=== PATIENT | male | born 1945 | race Caucasian/White ===

== ENCOUNTER 2022-10-30 16:29 | Observation (INO) ==
--- NOTE | 2022-10-30 16:35 | ED.PDOC ---
General ED Provider: Dr. ROHAN CORTES MD Chief Complaint: Shortness of Air Stated Complaint: Patient presents with a 2-3 day history of dyspnea with exertion, weakness, fatigue and heart rate in the 40s. He did have influenza 2 weeks ago. Denies fever, chills, chest pain, cough, palpitations, syncope, orthopnea, or peripheral edema. Time Seen by Provider: 10/30/22 16:34 Primary Care Provider: ELVIS SULLIVAN MD Nursing and Triage Documentation Reviewed and Agree: Yes Does patient meet sepsis criteria?: No System Inflammatory Response Syndrome: Not Applicable Sepsis Protocol: For patient's 13 years and over: Temp is 96.8 and below OR 101 and greater Pulse >90 BPM Resp >20/minute Acutely Altered Mental Status Are patient's symptoms suggestive of a new infection, such as: -Pneumonia -Skin, Soft Tissue -Endocarditis -UTI -Bone, Joint Infection -Implantable Device -Acute Abdominal Infection -Wound Infection -Meningitis -Blood Stream Catheter Infection -Unknown Cardiovascular Complaint Exam Palpitations Complaint/Exam Onset/Duration: 2-3 days dyspnea, weakness, fatigue and bradycardia Symptoms Are: Still present Timing: Constant Initial Severity: Mild Current Severity: Moderate Character: Reports Slow Aggravating: Reports Exertion Alleviating: Reports Rest Associated Signs and Symptoms: Reports Lightheadedness and Shortness of breath Related History: Similar episode Related Surgical History: Reports None Cardiac Risk Factors: Reports Hypertension and Elevated lipids Pulmonary Embolism Risk Factors: Reports None Atrial Fibrillation Risk Factors: Reports Hypertension Thyroid Exam: Normal Review of Systems Review Of Systems Constitutional: Reports Weakness and Other (fatigue) Eyes: Reports No symptoms Ears, Nose, Mouth, Throat: Reports No symptoms Respiratory: Reports Short of air Cardiac: Reports Other (bradycardia) GI: Reports No symptoms : Reports No symptoms Musculoskeletal: Reports No symptoms Skin: Reports No symptoms Neurological: Reports No symptoms Endocrine: Reports No symptoms Hematologic/Lymphatic: Reports No symptoms All Other Systems: Reviewed and Negative Physical Exam Physical Exam Appearance: Reports Ill-appearing, No pain distress and Well-nourished Ill-appearing: Mild Pain Distress: None Eyes: Reports Not Examined ENT: Reports Nose normal and Oropharynx normal Neck: Supple (no carotid bruit or JVD) Respiratory: Reports Airway patent, Breath sounds clear and Breath sounds equal Cardiovascular: Reports No rub, No murmur and Bradycardia (heart rate in the 50s) GI/: Reports Soft, Nontender, No masses and Bowel sounds normal Musculoskeletal: Reports Normal strength, ROM intact and No edema Skin: Reports Warm, Dry and Normal color Neurological: Reports Sensation intact, Motor intact, Alert and Oriented Psychiatric: Reports Affect appropriate and Mood appropriate Interpretation Radiology Interpretation Radiology Interpretation By: Radiologist Exam Interpreted: Portable CXR (no acute cardiopulmonary findings) EKG Interpretation Time of EKG #1: 16:42 Rate: Normal (60bpm) Rhythm: Sinus Ectopy: None [place]: [place] ST Segment: Normal Interpretation: normal sinus rhythm, LBBB Physician Notification Case Discussed Physician Notified: Dr Sullivan Time of Notification: 17:33 Comments: Patient will be admitted for observation and placed on telemetry Critical Care Note Critical Care Note Total Critical Care Time (mins): 0 Course Course Hematology/Chemistry: 10/30/22 16:41 10/30/22 16:41 Orders, Labs, Meds: Lab Review 10/30/22 10/30/22 10/30/22 16:41 16:41 16:41 WBC 6.35 RBC 4.48 L Hgb 14.2 Hct 41.4 L MCV 92.4 MCH 31.7 H MCHC 34.3 RDW Coeff of [place] 13.2 Plt Count 204 Immature Gran % (Auto) 0.3 Neut % (Auto) 59.0 Lymph % (Auto) 27.9 [place] % (Auto) 8.8 Eos % (Auto) 3.5 Baso % (Auto) 0.5 Neut # (Auto) 3.8 Lymph # (Auto) 1.8 [place] # (Auto) 0.6 Eos # (Auto) 0.2 Baso # (Auto) 0.0 Immature Gran # (Auto) 0.0 Sodium 141.5 Potassium 3.56 Chloride 109.2 H Carbon Dioxide 27.7 Anion Gap 8.16 BUN 19.1 Creatinine 1.29 H Estimated GFR (MDRD) 54.00 BUN/Creatinine Ratio 14.80 Glucose 110.5 H Calcium 9.58 Magnesium 1.98 Total Bilirubin 0.93 AST 52.2 ALT 30.2 Alkaline Phosphatase 50.8 L Troponin I < 0.012 NT-Pro-B Natriuret Pep 167.000 Total Protein 7.44 Albumin 4.46 Globulin 2.98 Albumin/Globulin Ratio 1.49 Orders Category Date Time Status EKG-(ED ONLY) Stat CARDIO 10/30/22 16:35 Completed BNP [NT-PROBNP] Stat LAB 10/30/22 16:41 Completed CBC W/ AUTO DIFF Stat LAB 10/30/22 16:41 Completed CMP [COMPREHENSIVE METABOLIC PANEL] Stat LAB 10/30/22 16:41 Completed MAGNESIUM Stat LAB 10/30/22 16:41 Completed TROPONIN I Stat LAB 10/30/22 16:41 Completed CXR [CHEST, 1V AP ONLY] Stat RADS 10/30/22 16:41 Completed Vital Signs: Temp Pulse Resp BP Pulse Ox 10/30/22 16:30 98.0 F 58 L 16 179/83 H 98 WENDY Risk Score WENDY Risk Score: Risk Score Odds of by 30D 0 0.1 (0.1-0.2) 1 0.3 (0.2-0.3) 2 0.4 (0.3-0.5) 3 0.7 (0.6-0.9) 4 1.2 (1.0-1.5) 5 2.2 (1.9-2.6) 6 3.0 (2.5-3.6) 7 4.8 (3.8-6.1) Discharge Plan Discharge Patient Disposition: PLACED OBSERVATION Discharge Problem: Bradycardia, Generalized weakness, Exertional dyspnea Did you review [place] DELIVERY ARCHITECT?: Not Applicable ED Provider: ROHAN CORTES Condition: Stable Physician Progress Note: []
[2022-10-30 17:01] LABS: ALANINE AMINOTRANSFERASE 30.2 U/L (0-50); ALBUMIN 4.46 g/dL (3.5-5.0); ALKALINE PHOSPHATASE 50.8 U/L (56-119); ASPARTATE AMINO TRANSFERASE 52.2 U/L (17-59); BILIRUBIN,TOTAL 0.93 mg/dL (0.2-1.3); BLOOD UREA NITROGEN 19.1 mg/dL (9-20); CALCIUM 9.58 mg/dL (8.4-10.2); CARBON DIOXIDE 27.7 mmol/L (22-30.0); CHLORIDE 109.2 mmol/L (98-107); CREATININE 1.29 mg/dL (0.60-1.10); GLUCOSE 110.5 mg/dL (74-106); MAGNESIUM 1.98 mg/dL (1.6-2.3); POTASSIUM 3.56 mmol/L (3.5-5.1); SODIUM 141.5 mmol/L (134.5-145); TOTAL PROTEIN 7.44 g/dL (6.3-8.2)
--- NOTE | 2022-10-30 17:01 | DI ---
EXAM: CHEST RADIOGRAPH (1 VIEW) TECHNIQUE: Frontal Chest Radiograph. HISTORY: Dyspnea COMPARISON: 01/01/2021 FINDINGS: Lines, Tubes, Devices: None Lungs and Pleura: No focal consolidation. No pleural effusion. No pneumothorax. No pulmonary edema . Cardiomediastinum: Normal cardiomediastinal silhouette. Mild to moderate aortic calcifications. Bones/Soft Tissues: No acute osseous abnormality. No soft tissue abnormality. Upper Abdomen: Within normal limits. IMPRESSION: No acute radiographic abnormality.
[2022-10-30 17:19] LABS: BASOPHILS % (AUTO) 0.5 % (0.0-3.0); EOSINOPHILS # (AUTO) 0.2 K/ul (0.0-0.7); EOSINOPHILS % (AUTO) 3.5 % (0.0-7.0); HEMATOCRIT 41.4 % (42.0-52.0); HEMOGLOBIN 14.2 g/dl (14.0-18.0); IMMATURE GRANULOCYTE % (AUTO) 0.3 % (0.0-5.0); LYMPHOCYTES # (AUTO) 1.8 K/uL (0.60-3.4); LYMPHOCYTES % (AUTO) 27.9 (10.0-50.0); MEAN CORPUSCULAR HEMOGLOBIN 31.7 pg (27.0-31.0); MEAN CORPUSCULAR HGB CONC 34.3 (31.8-35.4); MEAN CORPUSCULAR VOLUME 92.4 fl (80.0-94.0); MONOCYTES # (AUTO) 0.6 K/uL (0.4-2.0); MONOCYTES % (AUTO) 8.8 (0-10); NEUTROPHILS # (AUTO) 3.8 K/ul (2.0-6.9); PLATELET COUNT 204 10^3/uL (140-440); RDW COEFFICIENT OF VARIATION 13.2 % (11.6-14.8); RED BLOOD COUNT 4.48 10^6/ul (4.70-6.10); TROPONIN I < 0.012 ng/ml (0.0000-0.120); WHITE BLOOD COUNT 6.35 K/ul (4.2-10.2)
--- NOTE | 2022-10-30 17:44 | PCM ---
Chief Complaint Chief Complaint: bradycardia, weakness, exertional dyspnea History of Present Illness History of Present Illness: Two day history of heart rate in the 40s, generalized weakness and exertional dyspnea. Review of Systems Constitutional: Reports Weakness and Fatigue Eyes: Reports No symptoms Ears: Reports No symptoms Nose: Reports No symptoms Throat: Reports No symptoms Mouth: Reports No symptoms Respiratory: Reports Shortness of air Cardiovascular: Reports Other (bradycardia) Gastrointestinal: Reports No symptoms Genitourinary: Reports No symptoms Neurological: Reports No symptoms Musculoskeletal: Reports No symptoms Skin: Reports No symptoms Immunology: Reports No symptoms Hematology: Reports No symptoms Endocrine: Reports No symptoms Psychiatric: Reports No symptoms Allergies Allergies Allergy/AdvReac Type Severity Reaction Status Date / Time Penicillins AdvReac Rash Verified 03/05/20 11:26 Body Composition Height: 5 ft 7 in Weight: 74.48 kg Body Mass Index (BMI): 25.7 Vital Signs Temperature: 98.0 F Pulse Rate: 58 Respiratory Rate: 16 Blood Pressure: 179/83 O2 Sat by Pulse Oximetry: 98 Physical Examination Appearance: Reports Well-appearing, No pain distress and Well-nourished Ill-appearing: Mild Pain Distress: None Eyes: Reports Not Examined ENT: Reports Nose normal and Oropharynx normal Neck: Supple (no JVD or carotid bruit) Respiratory: Reports Airway patent, Breath sounds clear and Breath sounds equal Cardiovascular: Reports No rub, No murmur and Bradycardia (heart rate in the 50s) GI/: Reports Soft, Nontender, No masses and Bowel sounds normal Musculoskeletal: Reports Normal strength, ROM intact and No edema Skin: Reports Warm, Dry and Normal color Neurological: Reports Sensation intact, Motor intact, Alert and Oriented Psychiatric: Reports Affect appropriate, Mood appropriate and Anxious Lab/Tests/Diagnostic Imaging Lab/Tests/Diagnostic Imaging: Lab Review 10/30/22 10/30/22 10/30/22 16:41 16:41 16:41 WBC 6.35 RBC 4.48 L Hgb 14.2 Hct 41.4 L MCV 92.4 MCH 31.7 H MCHC 34.3 RDW Coeff of [place] 13.2 Plt Count 204 Immature Gran % (Auto) 0.3 Neut % (Auto) 59.0 Lymph % (Auto) 27.9 [place] % (Auto) 8.8 Eos % (Auto) 3.5 Baso % (Auto) 0.5 Neut # (Auto) 3.8 Lymph # (Auto) 1.8 [place] # (Auto) 0.6 Eos # (Auto) 0.2 Baso # (Auto) 0.0 Immature Gran # (Auto) 0.0 Sodium 141.5 Potassium 3.56 Chloride 109.2 H Carbon Dioxide 27.7 Anion Gap 8.16 BUN 19.1 Creatinine 1.29 H Estimated GFR (MDRD) 54.00 BUN/Creatinine Ratio 14.80 Glucose 110.5 H Calcium 9.58 Magnesium 1.98 Total Bilirubin 0.93 AST 52.2 ALT 30.2 Alkaline Phosphatase 50.8 L Troponin I < 0.012 NT-Pro-B Natriuret Pep 167.000 Total Protein 7.44 Albumin 4.46 Globulin 2.98 Albumin/Globulin Ratio 1.49 Orders Category Date Time Status EKG-(ED ONLY) Stat CARDIO 10/30/22 16:35 Completed BNP [NT-PROBNP] Stat LAB 10/30/22 16:41 Completed CBC W/ AUTO DIFF Stat LAB 10/30/22 16:41 Completed CMP [COMPREHENSIVE METABOLIC PANEL] Stat LAB 10/30/22 16:41 Completed MAGNESIUM Stat LAB 10/30/22 16:41 Completed TROPONIN I Stat LAB 10/30/22 16:41 Completed CXR [CHEST, 1V AP ONLY] Stat RADS 10/30/22 16:41 Completed Assessment (1) Bradycardia: Status: Acute Code(s): R00.1 - Bradycardia, unspecified SNOMED Code(s): 28847993 (2) Generalized weakness: Status: Acute Code(s): R53.1 - Weakness SNOMED Code(s): 34046768 (3) Exertional dyspnea: Status: Acute Code(s): R06.09 - Other forms of dyspnea SNOMED Code(s): 02277475 Plan Plan: Patient to be admitted and placed on telemetry. Dr Aldana to see and assess further.
[2022-10-30 19:24] LABS: SARS COV-2 RNA RAPID NAAT NEGATIVE (NEGATIVE)
[2022-10-30] MEDS ORDERED: XANAX PO PRN (20:08)
[2022-10-30] MEDS ORDERED: PROTONIX PO SCH (21:00)
[2022-10-30 21:06] VITALS: BMI 25.6
[2022-10-30] MEDS: COZAAR PO SCH (22:59)
[2022-10-30] MEDS: NORVASC PO SCH (22:59)
[2022-10-31 05:16] LABS: BASOPHILS % (AUTO) 0.6 % (0.0-3.0); EOSINOPHILS # (AUTO) 0.3 K/ul (0.0-0.7); EOSINOPHILS % (AUTO) 4.6 % (0.0-7.0); HEMOGLOBIN 13.4 g/dl (14.0-18.0); IMMATURE GRANULOCYTE % (AUTO) 0.4 % (0.0-5.0); LYMPHOCYTES # (AUTO) 1.4 K/uL (0.60-3.4); MEAN CORPUSCULAR HEMOGLOBIN 31.8 pg (27.0-31.0); MEAN CORPUSCULAR HGB CONC 34.4 (31.8-35.4); MEAN CORPUSCULAR VOLUME 92.6 fl (80.0-94.0); MONOCYTES # (AUTO) 0.5 K/uL (0.4-2.0); MONOCYTES % (AUTO) 8.9 (0-10); NEUTROPHILS # (AUTO) 3.2 K/ul (2.0-6.9); NEUTROPHILS % (AUTO) 59.5 % (42.2-75.2); PLATELET COUNT 178 10^3/uL (140-440); RDW COEFFICIENT OF VARIATION 13.2 % (11.6-14.8); RED BLOOD COUNT 4.21 10^6/ul (4.70-6.10); WHITE BLOOD COUNT 5.39 K/ul (4.2-10.2)
[2022-10-31 05:30] LABS: ALANINE AMINOTRANSFERASE 26.4 U/L (0-50); ALBUMIN 3.97 g/dL (3.5-5.0); ALKALINE PHOSPHATASE 47.1 U/L (56-119); ASPARTATE AMINO TRANSFERASE 27.1 U/L (17-59); BILIRUBIN,TOTAL 0.65 mg/dL (0.2-1.3); BLOOD UREA NITROGEN 19.8 mg/dL (9-20); CALCIUM 9.15 mg/dL (8.4-10.2); CHLORIDE 110.2 mmol/L (98-107); CREATININE 1.31 mg/dL (0.60-1.10); GLUCOSE 109.5 mg/dL (74-106); TOTAL PROTEIN 6.51 g/dL (6.3-8.2)
[2022-10-31 05:31] LABS: POTASSIUM 3.93 mmol/L (3.5-5.1)
[2022-10-31] MEDS: PROTONIX PO SCH ×2 (08:32→17:15)
[2022-10-31] MEDS: NORVASC PO SCH ×3 (08:32→20:31)
[2022-10-31] MEDS: COZAAR PO SCH ×2 (08:33→20:30)
[2022-10-31] MEDS ORDERED: PLAVIX PO SCH ×2 (09:00→21:00)
[2022-10-31] MEDS ORDERED: PRAVACHOL PO SCH ×2 (09:00→21:00)
[2022-10-31] MEDS ORDERED: CELEXA PO SCH ×2 (09:00→21:00)
--- NOTE | 2022-10-31 13:45 | US ---
EXAMINATION: Carotid Doppler ultrasound HISTORY: Fatigue, weakness, and dizziness. Hypertension. COMPARISON: Ultrasound 01/01/2021. TECHNIQUE: Multiple sonographic images were obtained of the bilateral carotid vasculature using davis scale and color/spectral Doppler analysis. FINDINGS: Plaque distribution: Heavy calcified plaque at the carotid bifurcations bilaterally. Arterial velocities measured in centimeters per second. Right common carotid artery peak systolic velocity: 115 Right internal carotid artery peak systolic velocity: 137 Right internal carotid artery end diastolic velocity: 14 Right ICA/CCA ratio: 1.2 Right external carotid artery peak systolic velocity: 93 Left common carotid artery peak systolic velocity: 86 Left internal carotid artery peak systolic velocity: 121 Left internal carotid artery end diastolic velocity: 17 Left ICA/CCA ratio: 1.4 Left external carotid artery peak systolic velocity: 77 Vertebrals: - Right: Antegrade flow with normal waveform. - Left: Antegrade flow with normal waveform. Society of Radiologists in Ultrasound (SRU) consensus statement (Radiology 2003; 229:340-346. DOI 10 .[id number].[id number]) was used to estimate internal carotid artery stenosis. IMPRESSION: 1. Moderate, 50 - 69% stenosis of the right internal carotid artery. 2. Mild, less than 50% stenosis of the left internal carotid artery. 3. Right Vertebral Artery: Antegrade. 4. Left Vertebral Artery: Antegrade.
[2022-11-01 05:16] LABS: BASOPHILS % (AUTO) 0.3 % (0.0-3.0); EOSINOPHILS # (AUTO) 0.3 K/ul (0.0-0.7); EOSINOPHILS % (AUTO) 4.9 % (0.0-7.0); HEMATOCRIT 40.2 % (42.0-52.0); HEMOGLOBIN 14.1 g/dl (14.0-18.0); IMMATURE GRANULOCYTE % (AUTO) 0.3 % (0.0-5.0); LYMPHOCYTES # (AUTO) 1.5 K/uL (0.60-3.4); LYMPHOCYTES % (AUTO) 25.1 (10.0-50.0); MEAN CORPUSCULAR HEMOGLOBIN 31.6 pg (27.0-31.0); MEAN CORPUSCULAR HGB CONC 35.1 (31.8-35.4); MEAN CORPUSCULAR VOLUME 90.1 fl (80.0-94.0); MONOCYTES # (AUTO) 0.5 K/uL (0.4-2.0); MONOCYTES % (AUTO) 7.9 (0-10); NEUTROPHILS # (AUTO) 3.7 K/ul (2.0-6.9); NEUTROPHILS % (AUTO) 61.5 % (42.2-75.2); PLATELET COUNT 180 10^3/uL (140-440); RDW COEFFICIENT OF VARIATION 12.7 % (11.6-14.8); RED BLOOD COUNT 4.46 10^6/ul (4.70-6.10); WHITE BLOOD COUNT 5.94 K/ul (4.2-10.2)
[2022-11-01 05:28] LABS: ALANINE AMINOTRANSFERASE 28.2 U/L (0-50); ALBUMIN 4.01 g/dL (3.5-5.0); ALKALINE PHOSPHATASE 49.2 U/L (56-119); ASPARTATE AMINO TRANSFERASE 29.8 U/L (17-59); BILIRUBIN,TOTAL 0.84 mg/dL (0.2-1.3); BLOOD UREA NITROGEN 15.8 mg/dL (9-20); CALCIUM 9.43 mg/dL (8.4-10.2); CARBON DIOXIDE 26.9 mmol/L (22-30.0); CHLORIDE 107.1 mmol/L (98-107); CREATININE 1.25 mg/dL (0.60-1.10); GLUCOSE 110.7 mg/dL (74-106); POTASSIUM 3.82 mmol/L (3.5-5.1); SODIUM 137.7 mmol/L (134.5-145); TOTAL PROTEIN 6.61 g/dL (6.3-8.2)
[2022-11-01] MEDS: PROTONIX PO SCH (06:06)
[2022-11-01] MEDS: COZAAR PO SCH (09:06)
[2022-11-01] MEDS: NORVASC PO SCH (09:06)
[2022-11-01 09:57] VITALS: BP 134/66; TEMP 97.7
--- NOTE | 2022-11-03 14:19 | SSS ---
DATE OF SERVICE: 11/01/22 REASON FOR ADMISSION: Shortness of breath HISTORY OF PRESENT ILLNESS: 76 year old white male has been having some shortness of breath on minimal exertion with some weakness and fatigue. The patient was seen in the office where he underwent complete profile which was more or less reported as normal which included CBC and CMP, T4 and TSH. The patient has history of influenza two weeks prior to hospitalization. REVIEW OF SYSTEMS: CONSTITUTIONAL: No night sweats. Weakness and fatigue. No fever or chills. HEENT: Eyes: No visual changes. No eye pain. No eye discharge. ENT: No runny nose. No epistaxis. No sinus pain. No sore throat. No odynophagia. No ear pain. No congestion. RESPIRATORY: No cough, no congestion. No hemoptysis. Shortness of air with minimal exertion. CARDIOVASCULAR: No angina symptoms. No CHF symptoms. No atypical chest pain for CAD. No palpitations. No orthopnea. Shortness of breath. GASTROINTESTINAL: No abdominal pain. No nausea or vomiting. No diarrhea or constipation. No hematemesis. No hematochezia. GENITOURINARY: No dysuria. No hematuria. No obstructive symptoms. No discharge. No pain. No significant abnormal bleeding. MUSCULOSKELETAL: No musculoskeletal pain. No joint swelling. NEUROLOGICAL: Awake, alert, oriented to time, place and person. No headache. No neck pain. No syncope. No seizures. No dizziness. PSYCHIATRIC: Not anxious. No depression. No suicidal thoughts. No homicidal thoughts. SKIN: No rash. No lesions. No wounds. ENDOCRINE: No unexplained weight loss. No weight gain. HEMATOLOGIC/LYMPHATIC: No anemia. No purpura. No petechiae. No prolonged or excessive bleeding. No palpable lymph nodes. PAST HISTORY: The patient has history of questionable TIA Couple of Syncopal episodes Hypertension Mild depression Hard of hearing Reflux disease Dyslipidemia Bradycardia According to the the patient had a couple of years ago at [facility], Dr. Kennedy Holter Monitor with Bradycardia and was reported that his minimal heart rate was 45 and they didn't see any problem with it. He also had cardiac catheterization done a couple of years ago at [facility] which was reported more or less normal. PERSONAL/FAMILY HISTORY/SOCIAL HISTORY: The patient is nonsmoker. No alcohol abuse, lives with the . He does all activity has daily living. Goes for [employer]. Questionable history of early dementia. Check his records at the office. PHYSICAL EXAMINATION: GENERAL: The patient is oriented to time, place and person, in no distress. VITAL SIGNS: Temperature 98.8, pulse 62, respiratory rate 18, blood pressure 125/72 and pulse ox later on reported as 94% on room air. HEENT: Head normocephalic, atraumatic. Eyes: Extraocular muscles are intact. Pupils are equal, round and reactive to light and accommodation. Ears: No lesions. Nose appeared normal. Throat: No exudate or erythema. Looks somewhat pale. NECK: Supple. No JVD, no carotid bruit. No lymphadenopathy or thyromegaly. LUNGS: Decreased breath sounds but good air entry. Percussion note normal. Chest symmetrical. HEART: S1, S2, no S3. No murmurs. No cyanosis or clubbing. No ascites. Pulses: Dorsalis pedis and posterior tibial pulses +1 bilaterally. ABDOMEN: Soft. Nontender. Bowel sounds active. No CVA tenderness. No mass felt. EXTREMITIES: No edema. Full range of motion of all extremities, equal. NEUROLOGIC: No focal deficit. Cranial nerves II through XII are grossly intact. No headache, no double vision or headache. SKIN: Not dry. Intact. Turgor - normal. LYMPHATIC: No palpable lymph nodes/no lymphedema. MUSCULOSKELETAL: Normal joints with no swelling. Muscle tone is normal. ALLERGIES: Penicillin MEDICATIONS: Xanax Amlodipine Citalopram Clopidogrel Losartan Pantoprazole Pravastatin HOSPITAL COURSE: The patient was hospitalized and worked up. The patient's hgb was 12.8, hct 39 with MVC of 95. The patient may have early myelodysplastic syndrome. The patient's creatinine at the time of discharge was 1.2 with BUN 15. Hgb was reported as 14 with hct 40. Oxygen saturation on room air was 97%. The patient had carotid scan done which showed right carotid artery 50-70%, left one was less than 50%. His echo was practically unchanged which with normal LV contractility and normal valvular structures. Considering the patient's cardiac cath being normal two years ago it is very unlikely that the patient may have severe coronary artery. In any case the patient will undergo Dobutamine Stress Echo Sestamibi as an outpatient. His PROBNP was 167 which is normal which rules out any congestive heart failure. Of course the patient didn't have any symptoms of CHF. PFT was also normal. EKG and cardiac markers were negative for any acute myocardial event. The patient's likely shortness of breath could be just fatigue and tired feeling from left over from Influenza A virus he had a couple of weeks ago. In any case he will be followed as an outpatient. The patient had Holter Monitor put on and at the time of discharge it was taken off and not read. Condition at the time of discharge is stable. DIAGNOSES: 1. Shortness of breath on exertion. 2. History of bradycardia 3. History of mild anemia 4. History of carotid stenosis 5. Chronic kidney disease 6. Dementia 7. Hypertension 8. Dyslipidemia 9. History of COVID 11/29/21 10. Positive sestamibi 01/19/21 11. Cardiac cath done 02/16/21 Dr. Pollard was normal with normal LV function 12. History of left bundle branch block 13. Cervical radiculopathy 14. C of the prostate [address] Sharma 15. Sleep apnea on CPAP 16. History of fatty liver 17. Chronic kidney disease followed by Dr. Reed 18. Status post cholecystectomy 19. History of TIA which is questionable 20. Dyslipidemia RECOMMENDATIONS/PLAN: 1. Discharge the patient home 2. The patient has noted occlusive disease with right sided being 50-70%. Explained about these findings. The patient is already on Plavix. 3. Holter Monitor to be taken off at the time of discharge. 4. Echocardiogram unchanged from before with normal LV contractility and ejection fraction 5. The patient will undergo stress Sestamibi as an outpatient, the patient will need Dobutamine TIME SPENT: More than 70 minutes. BILLY
--- NOTE | 2022-11-03 14:20 | PN ---
10/30/22: Level 5 10/31/22: Intermediate 11/01/22: D as in discharge. MTDD
--- NOTE | 2022-11-04 11:00 | HOLTER ---
PATIENT INFORMATION AND COMMENTS Attending Physician: DR. ELVIS SULLIVAN Indications: BRADYCARDIA __ Patient Medications: PLAVIX, NORVASC, PROTONIX, COZAAR, PRAVACHOL, XANAX, CELEXA __ Pre-procedure Summary: Protocol: Standard Heart Rate Started: 10/31/2022 Minimum: 44 BPM Weight: 163 LBS Ended: 11/01/2022 Maximum: 64 BPM Height: 67" Duration: 23 HRS 53 MIN Average: 53 BPM _ INTERPRETATIONS/OBSERVATIONS: 1. BASIC RHYTHM: SINUS, RATE 44 BPM TO 64 BPM, AVERAGE 53 BPM 2. INFREQUENT ISOLATED PVC'S AND RARE PAC'S 3. NO PAUSES GREATER THAN 2.[address]-T WAVE CHANGES FROM BASELINE 5. ACTIVITY LOG NOT AVAILABLE MTDD
--- NOTE | 2022-11-05 10:42 | PN ---
DATE OF SERVICE: 10/30/22 SUBJECTIVE: The patient was hospitalized after being seen in the emergency room by ER attending. The patient has a lot of nonspecific complaints. His main complaint is being short of breath on minimal exertion and had been seen in the office and the walk in twice. His labs are unremarkable. X-ray findings in the emergency room and EKG didn't show any acute changes or any acute findings. The patient had labs done in the office 2-3 days ago which was also reported practically normal. The patient has early dementia. We will hospitalize the patient under observation and he will undergo workup. TIME SPENT: More than 30 minutes. Plan and coordination of the patient's care discussed in the presence of nurse. BILLY
--- NOTE | 2022-11-05 13:19 | ECHO2D ---
Date of Exam: 10/31/2022 Ordering Physician: DR. ELVIS SULLIVAN Room #: 108 Reason for Echo: SOB M-Mode Normal Adult Results LV Dimensions Normal Adult Results AoV Opening excursions >1.6 >1.6 LVEDD-base- 3.5-5.8 5.1 Ao root dimensions 2.0-3.7 3.0 LVESD-base- 3.1-4.6 L. Atrium dimensions 1.9-3.8 4.2 Post. Wall thickness 0.8-1.1 1.1 IV septum (thickness) 0.7-1.2 1.2 Post. Wall excursion 0.72-1.3 NORMAL Septal motion NORMAL Systolic motion R. Ventricular cavity 1.5-2.0 NORMAL LVEF 60% 62% Paradoxical septal wall motion NORMAL 2-D : 2-D M Mode Echocardiogram was performed using apical four chamber and left parasternal long and short axis views. Mitral, tricuspid and aortic valves appear to be normal. Contractility of the left ventricle seems to be normal, so is the cavity size. ENLARGED LEFT ATRIAL CAVITY SIZE. Aortic root appears to be normal. There is no pericardial effusion. There is no thrombus noted in the left ventricle or left atrial cavity. M-MODE: MV: NORMAL AV: NORMAL TV: NORMAL PV: CHAMBER SIZE: ENLARGED LEFT ATRIAL CAVITY WALL MOTION: NORMAL PERICARDIUM: NORMAL INTERPRETATION: 1. BORDERLINE LEFT VENTRICLE HYPERTROPHY WITH ENLARGED LEFT ATRIAL CAVITY 2. NORMAL LEFT VENTRICLE CONTRACTILITY 3. NORMAL VALVES 4. MILD MITRAL REGURGITATION BY COLOR FLOW MTDD
--- NOTE | 2022-11-05 13:30 | PN ---
DATE OF SERVICE: 10/31/22 SUBJECTIVE: 76 year old white male was hospitalized with shortness of breath on minimal exertion. The patient has been seen in the office twice and he ended up in the emergency room where he was worked up with practically negative workup but the patient had bradycardia, rate of 45-50 per minute with his continued complaints of being short of breath he was hospitalized under observation for further workup. REVIEW OF SYSTEMS: CONSTITUTIONAL: No night sweats. No fatigue, malaise, lethargy. No fever or chills. HEENT: Eyes: No visual changes. No eye pain. No eye discharge. ENT: No runny nose. No epistaxis. No sinus pain. No sore throat. No odynophagia. No congestion. RESPIRATORY: No cough, no congestion. No hemoptysis. Shortness of breath on exertion. CARDIOVASCULAR: No angina symptoms. No CHF symptoms. No atypical chest pain for CAD. No palpitations. No PND. No orthopnea. GASTROINTESTINAL: No abdominal pain. No nausea or vomiting. No diarrhea or constipation. No hematemesis. No hematochezia. GENITOURINARY: No urgency. No frequency. No dysuria. No hematuria. No obstructive symptoms. No discharge. No pain. No significant abnormal bleeding. MUSCULOSKELETAL: No musculoskeletal pain; no joint swelling. NEUROLOGICAL: No headache. No neck pain. No syncope. No seizures. Slight dizziness. PSYCHIATRIC: Not anxious. No depression. No suicidal thoughts. No homicidal thoughts. SKIN: No rash. No lesions. No wounds. ENDOCRINE: No unexplained weight loss. No weight gain. HEMATOLOGIC/LYMPHATIC: No anemia. No purpura. No petechiae. No prolonged or excessive bleeding. No palpable lymph nodes. PHYSICAL EXAMINATION: GENERAL: The patient is COVID negative. VITAL SIGNS: Temperature 97.5, pulse 58, respiratory rate 18, blood pressure 135/63 and pulse ox 98%. HEENT: Head normocephalic, atraumatic. Eyes: Extraocular muscles are intact. Pupils are equal, round and reactive to light and accommodation. Ears: No lesions. Nose appeared normal. Throat: No exudate or erythema. NECK: Supple. No JVD, no carotid bruit. No lymphadenopathy or thyromegaly. LUNGS: Decreased breath sounds but clear to auscultation. Percussion note normal. Chest symmetrical. HEART: S1, S2, no S3. No murmurs. No cyanosis or clubbing. No ascites. Pulses: Dorsalis pedis and posterior tibial pulses +1 to +2 bilaterally. ABDOMEN: Soft. Nontender. Bowel sounds active. No CVA tenderness. No mass felt. EXTREMITIES: No edema. Full range of motion of all extremities, equal. NEUROLOGIC: No focal deficit. Cranial nerves II through XII are grossly intact. No headache. No double vision. SKIN: Not dry. Intact. Turgor - normal. LYMPHATIC: No palpable lymph nodes/no lymphedema. MUSCULOSKELETAL: Normal joints with no swelling. Muscle tone is normal. LABS: Hgb 13.4, hct 39, WBC 5,300 normal differential, creatinine 1.3, BUN 19, potassium 3.9 ASSESSMENT: 1. Generalized bradycardia 2. Shortness of breath on exertion etiology to be determined 3. Chronic kidney disease 4. History of hypertension 5. History of dyslipidemia PLAN: 1. PFT, was done which was almost within normal range. 2. Echo was done the patient has borderline LVH with enlarged LA cavity, normal valvular structures, practically unchanged from 07/20 3. Holter monitor 4. Scan was done right sided showed 50-70% occlusive disease, left side less than 50%. 5. The patient is going to need workup for coronary artery disease in a way of Stress test sestamibi CONDITION: Stable for now. Cardiac workup is all negative. PROBNP is 167 which is normal. TIME SPENT: More than 30 minutes. Plan and coordination of the patient's care discussed in the presence of nurse. BILLY
--- NOTE | 2022-11-05 13:37 | PN ---
DATE OF SERVICE: 11/01/22 SUBJECTIVE: 76 year old white male hospitalized with shortness of breath on exertion. The patient has been monitored for last couple of days. His heart rate dips down to 45. The blood pressure has been systolic less than 128 to 130. No pauses of more than 2 seconds noted. The patient's is in the room. REVIEW OF SYSTEMS: CONSTITUTIONAL: No night sweats. Fatigue. No weakness. No fever or chills. HEENT: Eyes: No visual changes. No eye pain. No eye discharge. ENT: No runny nose. No epistaxis. No sinus pain. No sore throat. No odynophagia. No congestion. RESPIRATORY: No cough, no congestion. No hemoptysis. Shortness of breath. CARDIOVASCULAR: No angina symptoms. No CHF symptoms. No atypical chest pain for CAD. No palpitations. No PND. No orthopnea. GASTROINTESTINAL: No abdominal pain. No nausea or vomiting. No diarrhea or constipation. No hematemesis. No hematochezia. GENITOURINARY: No urgency. No frequency. No dysuria. No hematuria. No obstructive symptoms. No discharge. No pain. No significant abnormal bleeding. MUSCULOSKELETAL: No musculoskeletal pain; no joint swelling. NEUROLOGICAL: No headache. No neck pain. No syncope. No seizures. No dizziness. PSYCHIATRIC: Not anxious. No depression. No suicidal thoughts. No homicidal thoughts. SKIN: No rash. No lesions. No wounds. ENDOCRINE: No unexplained weight loss. No weight gain. HEMATOLOGIC/LYMPHATIC: No anemia. No purpura. No petechiae. No prolonged or excessive bleeding. No palpable lymph nodes. PHYSICAL EXAMINATION: VITAL SIGNS: Temperature 97, pulse 52, respiratory rate 18, blood pressure 140/70 and pulse ox 97%. HEENT: Head normocephalic, atraumatic. Eyes: Extraocular muscles are intact. Pupils are equal, round and reactive to light and accommodation. Ears: No lesions. Nose appeared normal. Throat: No exudate or erythema. NECK: Supple. No JVD, no carotid bruit. No lymphadenopathy or thyromegaly. LUNGS: Decreased breath sounds but clear to auscultation. Percussion note normal. Chest symmetrical. HEART: S1, S2, no S3. No murmurs. No cyanosis or clubbing. No ascites. Pulses: Dorsalis pedis and posterior tibial pulses +1 to +2 bilaterally. ABDOMEN: Soft. Nontender. Bowel sounds active. No CVA tenderness. No mass felt. EXTREMITIES: No edema. Full range of motion of all extremities, equal. NEUROLOGIC: No focal deficit. Cranial nerves II through XII are grossly intact. No headache. No double vision. SKIN: Not dry. Intact. Turgor - normal. LYMPHATIC: No palpable lymph nodes/no lymphedema. MUSCULOSKELETAL: Normal joints with no swelling. Muscle tone is normal. LABS: Hgb 14, hct 40, WBC 5,900 normal differential, creatinine 1.2, BUN 15, potassium 3.8. ASSESSMENT: 1. Shortness of breath, etiology to be determine likely combination of sedentary lifestyle and aging process. Trying to rule out coronary artery disease which the patient had cardiac cath done two years ago which was reported as normal; we will check for the patient's reports. The patient had cardiac catheterization done at [facility], Dr. Kennedy was his doctor when he was worked up for even bradyarrhythmias at the time, lowest heart rate recorded was 45 according to the . PLAN: 1. Discharge the patient home. 2. 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 Explained about this findings. The patient is already on Plavix. 3. Holter Monitor to be taken off at the time of discharge. 4. Echocardiogram unchanged as before with normal LV contractility and ejection fraction. The patient will undergo stress sestamibi as an outpatient. The patient will need Dobutamine. TIME SPENT: More than 30 minutes. Plan and coordination of the patient's care discussed in the presence of nurse. BILLY
== END 2022-11-01 14:00 | disposition home or self-care (01) ==
LOC: ED 16:29 → MEDSURG A 16:29
PROVIDERS: ADMIT Internal Medicine; ATTEND Internal Medicine
DX: Z86.16 Personal history of COVID-19; Z79.899 Other long term (current) drug therapy; Z86.79 Personal history of other diseases of the circulatory system; Z79.01 Long term (current) use of anticoagulants; R53.1 Weakness; R06.02 Shortness of breath; D64.9 Anemia, unspecified; N18.9 Chronic kidney disease, unspecified; K21.9 Gastro-esophageal reflux disease without esophagitis; R06.09 Other forms of dyspnea; F03.90 Unspecified dementia, unspecified severity, without behavioral disturbance, psychotic disturbance, mood disturbance, and anxiety; G47.30 Sleep apnea, unspecified; E78.5 Hyperlipidemia, unspecified; F32.A Depression, unspecified; Z51.81 Encounter for therapeutic drug level monitoring; R00.1 Bradycardia, unspecified; M54.12 Radiculopathy, cervical region; R42 Dizziness and giddiness; K76.0 Fatty (change of) liver, not elsewhere classified; Z20.822 Contact with and (suspected) exposure to COVID-19; I51.7 Cardiomegaly; H91.93 Unspecified hearing loss, bilateral; C61 Malignant neoplasm of prostate; R53.83 Other fatigue